=== PATIENT | male | born 1980 | race Caucasian/White ===

== ENCOUNTER 2019-04-27 19:19 | Emergency (ER) | payer OTHER ==
[~2019-04-27] VITALS: Ht 177.8 cm; Wt 85.7 kg
== END 2019-04-27 22:57 | disposition home or self-care (01) ==
LOC: ER 19:19
DX: R51 Headache (principal)

== ENCOUNTER 2020-03-25 10:21 | Outpatient (CLI) | payer OTHER | END 2020-03-25 10:30 | disposition home or self-care (01) | LOC: RX STUDY 10:21 | PROVIDERS: ATTEND Internal Medicine Gastroenterology | DX: K44.9 Diaphragmatic hernia without obstruction or gangrene (principal); K21.0 Gastro-esophageal reflux disease with esophagitis ==